=== PATIENT | female | born 1995 | race Caucasian/White ===

== ENCOUNTER 2018-01-19 11:41 | Emergency (ER) | payer OTHER ==
[~2018-01-19] VITALS: Ht 172.7 cm; Wt 90.0 kg
[~2018-01-19 11:41] MED LIST: SERT100T5 PO; ZOLP10TA PO
[2018-01-19] MEDS ORDERED: MORPHINE SULFATE 4 MG/ML, 1ML IVPush ONE ×2 (12:00→13:30)
[2018-01-19] MEDS ORDERED: ONDANSETRON ODT 4 MG PO ONE (12:00)
[2018-01-19] MEDS ORDERED: ONDANSETRON ODT 4 MG ONE (12:10)
[2018-01-19] MEDS ORDERED: MORPHINE SULFATE 4 MG/ML, 1ML ONE ×2 (12:11→13:22)
[2018-01-19 14:37] VITALS: BP 126/72
== END 2018-01-19 14:40 | disposition home or self-care (01) ==
LOC: ED 14:34
DX: S42.322A Displaced transverse fracture of shaft of humerus, left arm, initial encounter for closed fracture (principal); V19.9XXA Pedal cyclist (driver) (passenger) injured in unspecified traffic accident, initial encounter; Y93.55 Activity, bike riding; Y92.89 Other specified places as the place of occurrence of the external cause; Y99.8 Other external cause status
CPT/HCPCS: 29105; 73030; 73060; 73070; 96374; 96376; 99284; Q0162